=== PATIENT | male | born 1935 | race Caucasian/White ===

== ENCOUNTER 2018-03-18 21:44 | Inpatient (IN) | payer MEDICARE, BC ==
[2018-03-18] MEDS ORDERED: ALBUTEROL/IPRATROPIUM 1 VIAL SOL INH ONE ×2 (21:53→22:14)
[2018-03-18] MEDS ORDERED: PREDNISONE 20 MG TAB PO ONE (21:53)
[2018-03-18] MEDS ORDERED: PREDNISONE 20 MG TAB ONE (21:55)
[2018-03-18] MEDS ORDERED: ALBUTEROL/IPRATROPIUM 1 VIAL SOL ONE ×2 (21:55→22:23)
[2018-03-18] MEDS ORDERED: MORPHINE SULFATE 10 MG/ML SOL IM ONE (22:14)
[2018-03-18] MEDS ORDERED: MORPHINE SULFATE 10 MG/ML SOL ONE (22:23)
[2018-03-19] MEDS ORDERED: LORAZEPAM 0.5 MG TAB PO ONE (00:09)
[2018-03-19] MEDS ORDERED: LORAZEPAM 0.5 MG TAB ONE (00:16)
[2018-03-19] MEDS ORDERED: DILTIAZEM 5 MG/ML SOL IV ONE ×5 (00:23→12:44)
[2018-03-19 00:31] LABS: BASOPHILS % (AUTO) 1 % (0-3); EOSINOPHILS % (AUTO) 7 % (0-9); HEMATOCRIT 44 % (39-53); HEMOGLOBIN 14.2 gm/dl (13.5-17.7); LYMPHOCYTES % (AUTO) 9.1 % (10-50); MEAN CORPUSCULAR HEMOGLOBIN 31.8 pg (27.0-32.0); MEAN CORPUSCULAR HGB CONC 32.5 gm/dl (32.0-36.0); MEAN CORPUSCULAR VOLUME 98 fL (80-100); MONOCYTES % (AUTO) 2.6 % (0-12); NEUTROPHILS % (AUTO) 80.4 % (37-80)
[2018-03-19 00:39] LABS: ABG PH 7.4 (7.35-7.45)
[2018-03-19 00:47] LABS: BLOOD UREA NITROGEN 18 mg/dl (7-18); CALCIUM 8.9 mg/dl (8.5-10.1); CARBON DIOXIDE 25.9 mEq/L (21-32); CHLORIDE 103 mMol/L (98-107); GLUCOSE 164 mg/dl (74-106); POTASSIUM 4.3 mMol/L (3.5-5.1); SODIUM 140 mMol/L (136-145); TROP I < 0.017 ng/ml (0.000-0.056)
[2018-03-19] MEDS ORDERED: AZITHROMYCIN 250 MG TAB PO ONE (03:02)
[2018-03-19] MEDS ORDERED: SODIUM CHLORIDE 0.9% 100 ML 100 ML IV ONE (03:09)
[2018-03-19] MEDS: DILTIAZEM 5 MG/ML 125 MG in SODIUM CHLORIDE 0.9% 100 ML 100 ML IV SCH ×3 (03:18→12:54)
[2018-03-19] MEDS: ALBUTEROL/IPRATROPIUM 1 VIAL SOL INH SCH ×4 (03:23→20:34)
[2018-03-19] MEDS: SODIUM CHLORIDE 0.9% FLUSH 10 ML SOL IV SCH ×3 (03:31→20:39)
[2018-03-19] MEDS: ALBUTEROL NEB SOL 2.5MG/3ML 1 VIAL SOL NEB PRN ×3 (07:08→19:24)
[2018-03-19] MEDS: SOLUMEDROL 125 MG/2 ML 125 MG/2 ML PDS IV SCH ×2 (09:27→16:30)
[2018-03-19] MEDS ORDERED: DONEPEZIL 5 MG 5 MG TAB ONE (09:31)
[2018-03-19] MEDS: ENOXAPARIN 40 MG SOL SC SCH (09:34)
[2018-03-19] MEDS: DONEPEZIL 10 MG TAB PO SCH (09:37)
[2018-03-19] MEDS ORDERED: MORPHINE SULFATE 10 MG/ML SOL IV PRN (13:25)
[2018-03-19] MEDS ORDERED: SODIUM CHLORIDE 0.9% 500 ML 500 ML IV ONE (13:30)
[2018-03-19] MEDS ORDERED: LORAZEPAM 0.5 MG TAB PO PRN (14:04)
[2018-03-19] MEDS: QUETIAPINE FUMARATE 25 MG TAB PO SCH (20:38)
[2018-03-20] MEDS: SOLUMEDROL 125 MG/2 ML 125 MG/2 ML PDS IV SCH ×4 (00:24→23:35)
[2018-03-20] MEDS: DILTIAZEM ER 120 MG C24 PO SCH (00:31)
[2018-03-20] MEDS: ALBUTEROL/IPRATROPIUM 1 VIAL SOL INH SCH ×4 (02:27→20:06)
[2018-03-20] MEDS: SODIUM CHLORIDE 0.9% FLUSH 10 ML SOL IV SCH ×4 (02:42→23:35)
[2018-03-20 07:35] LABS: CALCIUM 8.9 mg/dl (8.5-10.1); CARBON DIOXIDE 25.5 mEq/L (21-32); CREATININE 1.13 mg/dl (0.80-1.30); POTASSIUM 4.6 mMol/L (3.5-5.1)
[2018-03-20 07:39] LABS: BASOPHILS % (AUTO) 0 % (0-3); EOSINOPHILS % (AUTO) 0 % (0-9); HEMATOCRIT 40 % (39-53); HEMOGLOBIN 12.8 gm/dl (13.5-17.7); LYMPHOCYTES % (AUTO) 9.4 % (10-50); MEAN CORPUSCULAR HEMOGLOBIN 31.5 pg (27.0-32.0); MEAN CORPUSCULAR VOLUME 98 fL (80-100); MONOCYTES % (AUTO) 1.5 % (0-12); NEUTROPHILS % (AUTO) 88.9 % (37-80)
[2018-03-20] MEDS ORDERED: LORAZEPAM 0.5 MG TAB PO PRN (08:14)
[2018-03-20] MEDS ORDERED: DONEPEZIL 5 MG 5 MG TAB ONE (08:33)
[2018-03-20] MEDS: AZITHROMYCIN 250 MG TAB PO SCH (08:50)
[2018-03-20] MEDS: DONEPEZIL 10 MG TAB PO SCH (08:51)
[2018-03-20] MEDS: ENOXAPARIN 40 MG SOL SC SCH (08:52)
[2018-03-20] MEDS: QUETIAPINE FUMARATE 25 MG TAB PO SCH (20:05)
[2018-03-21] MEDS: ALBUTEROL/IPRATROPIUM 1 VIAL SOL INH SCH ×4 (02:18→20:38)
[2018-03-21 07:18] LABS: BASOPHILS % (AUTO) 0 % (0-3); EOSINOPHILS % (AUTO) 0 % (0-9); HEMATOCRIT 40 % (39-53); HEMOGLOBIN 13.1 gm/dl (13.5-17.7); LYMPHOCYTES % (AUTO) 4.5 % (10-50); MEAN CORPUSCULAR HEMOGLOBIN 32.2 pg (27.0-32.0); MEAN CORPUSCULAR VOLUME 97 fL (80-100); MONOCYTES % (AUTO) 2.5 % (0-12); NEUTROPHILS % (AUTO) 92.9 % (37-80)
[2018-03-21 07:19] LABS: CALCIUM 8.7 mg/dl (8.5-10.1); CARBON DIOXIDE 25.3 mEq/L (21-32); CREATININE 1.24 mg/dl (0.80-1.30); POTASSIUM 4.1 mMol/L (3.5-5.1)
[2018-03-21] MEDS: SODIUM CHLORIDE 0.9% FLUSH 10 ML SOL IV SCH ×2 (09:24→20:42)
[2018-03-21] MEDS: DONEPEZIL 5 MG 5 MG TAB PO SCH (09:30)
[2018-03-21] MEDS: AZITHROMYCIN 250 MG TAB PO SCH (09:30)
[2018-03-21] MEDS: DILTIAZEM ER 120 MG C24 PO SCH (09:31)
[2018-03-21] MEDS: SOLUMEDROL 125 MG/2 ML 125 MG/2 ML PDS IV SCH ×3 (10:22→21:51)
[2018-03-21] MEDS: QUETIAPINE FUMARATE 25 MG TAB PO SCH (20:43)
[2018-03-22] MEDS: SODIUM CHLORIDE 0.9% FLUSH 10 ML SOL IV SCH ×3 (01:15→17:51)
[2018-03-22] MEDS: ALBUTEROL/IPRATROPIUM 1 VIAL SOL INH SCH ×4 (01:55→20:53)
[2018-03-22 07:24] LABS: CALCIUM 8.4 mg/dl (8.5-10.1); CARBON DIOXIDE 27.7 mEq/L (21-32); CREATININE 1.18 mg/dl (0.80-1.30); POTASSIUM 3.9 mMol/L (3.5-5.1)
[2018-03-22] MEDS: AZITHROMYCIN 250 MG TAB PO SCH (08:34)
[2018-03-22] MEDS: DILTIAZEM ER 120 MG C24 PO SCH (08:35)
[2018-03-22] MEDS: DONEPEZIL 5 MG 5 MG TAB PO SCH (08:36)
[2018-03-22] MEDS: PREDNISONE 20 MG TAB PO SCH (09:29)
[2018-03-22] MEDS: QUETIAPINE FUMARATE 25 MG TAB PO SCH (20:55)
[2018-03-23] MEDS: ALBUTEROL/IPRATROPIUM 1 VIAL SOL INH SCH ×2 (04:09→09:29)
[2018-03-23] MEDS: SODIUM CHLORIDE 0.9% FLUSH 10 ML SOL IV SCH ×2 (04:15→08:36)
[2018-03-23 07:52] VITALS: BP 134/81; TEMP 97.7
[2018-03-23] MEDS: AZITHROMYCIN 250 MG TAB PO SCH (08:38)
[2018-03-23] MEDS: DILTIAZEM ER 120 MG C24 PO SCH (08:38)
[2018-03-23] MEDS: PREDNISONE 20 MG TAB PO SCH (08:38)
[2018-03-23] MEDS ORDERED: DONEPEZIL 5 MG 5 MG TAB PO SCH (09:00)
[2018-03-23] MEDS ORDERED: INFLUENZA HIGH DOSE VACCINE 0.5 ML SUS IM ONE (09:29)
[2018-03-23 09:35] VITALS: RESP 20
[2018-03-23 09:37] VITALS: PULSE 98; O2SAT 96
== END 2018-03-23 09:50 | disposition home or self-care (01) | DRG 192 ==
LOC: ED 21:44 → ACUTE CARE 03-19 01:30
PROVIDERS: ADMIT Emergency Medicine; ATTEND Emergency Medicine
PROC: F01M5ZZ Range of Motion and Joint Integrity Assessment of Musculoskeletal System - Whole Body (ICD-10-PCS; principal; 2018-03-20)
PROC: [UNRECOGNIZED PROCEDURE] (2018-03-20)
PROC: F02Z0ZZ Bathing/Showering Assessment (ICD-10-PCS; 2018-03-20)
DX: J44.1 Chronic obstructive pulmonary disease with (acute) exacerbation (principal); I48.91 Unspecified atrial fibrillation; R06.02 Shortness of breath; E11.9 Type 2 diabetes mellitus without complications; F03.90 Unspecified dementia, unspecified severity, without behavioral disturbance, psychotic disturbance, mood disturbance, and anxiety
CPT/HCPCS: 36415; 36600; 51798; 71045; 80048; 82803; 82962; 83880; 84484; 85025; 90662; 93005; 93012; 93306; 94150; 94640; 94664; 96372; 96374; 99222; 99291; J1650; J2270; J2930; J7613; A9270-GY; G0008; J3490

== ENCOUNTER 2018-07-04 22:36 | Inpatient (IN) | payer MEDICARE, BC ==
[2018-07-04] MEDS ORDERED: ALBUTEROL NEB SOL 2.5MG/3ML 1 VIAL SOL NEB ONE ×2 (22:39→23:15)
[2018-07-04] MEDS ORDERED: SOLUMEDROL 125 MG/2 ML 125 MG/2 ML PDS IV ONE (22:39)
[2018-07-04] MEDS: SODIUM CHLORIDE 0.9% FLUSH 10 ML SOL IV PRN (22:40)
[2018-07-04] MEDS ORDERED: SOLUMEDROL 125 MG/2 ML 125 MG/2 ML PDS ONE (22:45)
[2018-07-04 23:14] LABS: BASOPHILS % (AUTO) 2 % (0-3); EOSINOPHILS % (AUTO) 11 % (0-9); HEMATOCRIT 43 % (39-53); HEMOGLOBIN 13.8 gm/dl (13.5-17.7); MEAN CORPUSCULAR HEMOGLOBIN 31.5 pg (27.0-32.0); MEAN CORPUSCULAR HGB CONC 32.4 gm/dl (32.0-36.0); MEAN CORPUSCULAR VOLUME 97 fL (80-100); MONOCYTES % (AUTO) 8.9 % (0-12); NEUTROPHILS % (AUTO) 63.3 % (37-80)
[2018-07-04 23:15] LABS: ABG PH 7.4 (7.35-7.45)
[2018-07-04] MEDS ORDERED: ALBUTEROL NEB SOL 2.5MG/3ML 1 VIAL SOL ONE (23:16)
[2018-07-04 23:29] LABS: ALBUMIN 3.7 gm/dl (3.4-5.0); ALKALINE PHOSPHATASE 70 IU/L (46-116); ALT 19 IU/L (14-63); AST 20 IU/L (15-37); BILIRUBIN,TOTAL 0.5 mg/dl (0.2-1.0); BLOOD UREA NITROGEN 21 mg/dl (7-18); CALCIUM 8.8 mg/dl (8.5-10.1); CARBON DIOXIDE 29.3 mEq/L (21-32); CHLORIDE 105 mMol/L (98-107); CREATININE 1.11 mg/dl (0.80-1.30); GLUCOSE 142 mg/dl (74-106); POTASSIUM 4.1 mMol/L (3.5-5.1); SODIUM 142 mMol/L (136-145); TOTAL PROTEIN 7.6 gm/dl (6.4-8.2); TROP I < 0.017 ng/ml (0.000-0.056)
[2018-07-04] MEDS ORDERED: ALBUTEROL/IPRATROPIUM 1 VIAL SOL INH ONE (23:47)
[2018-07-04] MEDS ORDERED: MAGNESIUM SULFATE 1 GM/2 ML SOL IV ONE (23:47)
[2018-07-04] MEDS ORDERED: ALBUTEROL/IPRATROPIUM 1 VIAL SOL ONE (23:54)
[2018-07-05] MEDS ORDERED: MAGNESIUM SULFATE 5 GM/10 ML SOL ONE (00:02)
[2018-07-05] MEDS ORDERED: ALBUTEROL NEB SOL 2.5MG/3ML 1 VIAL SOL NEB PRN ×2 (02:33→10:10)
[2018-07-05] MEDS ORDERED: AZITHROMYCIN 500 MG PDS IV SCH (02:45)
[2018-07-05] MEDS: SOLUMEDROL 125 MG/2 ML 125 MG/2 ML PDS IV SCH ×4 (03:28→20:49)
[2018-07-05] MEDS: SODIUM CHLORIDE 0.9% FLUSH 10 ML SOL IV PRN ×2 (03:30→20:50)
[2018-07-05] MEDS ORDERED: ALBUTEROL NEB SOL 2.5MG/3ML 1 VIAL SOL ONE (03:56)
[2018-07-05] MEDS ORDERED: FUROSEMIDE 20mg SOL IV ONE (04:15)
[2018-07-05] MEDS ORDERED: BISACODYL 5 MG TAB ECT PO PRN (08:21)
[2018-07-05] MEDS: DOXYCYCLINE 100 MG TAB PO SCH ×2 (08:46→20:52)
[2018-07-05] MEDS: DONEPEZIL 5 MG 5 MG TAB PO SCH (08:47)
[2018-07-05] MEDS: DILTIAZEM ER 120 MG C24 PO SCH (08:48)
[2018-07-05] MEDS: NOVOLOG FLEXPEN SC SCH ×4 (08:51→20:55)
[2018-07-05] MEDS: ALBUTEROL/IPRATROPIUM 1 VIAL SOL INH SCH ×3 (08:56→20:46)
[2018-07-05] MEDS: QUETIAPINE FUMARATE 25 MG TAB PO SCH (20:52)
[2018-07-06] MEDS: ALBUTEROL/IPRATROPIUM 1 VIAL SOL INH SCH ×4 (02:42→21:12)
[2018-07-06] MEDS: SODIUM CHLORIDE 0.9% FLUSH 10 ML SOL IV PRN ×3 (02:45→21:13)
[2018-07-06] MEDS: SOLUMEDROL 125 MG/2 ML 125 MG/2 ML PDS IV SCH ×4 (02:45→21:14)
[2018-07-06] MEDS: NOVOLOG FLEXPEN SC SCH ×4 (08:51→21:19)
[2018-07-06] MEDS: DILTIAZEM ER 120 MG C24 PO SCH (08:55)
[2018-07-06] MEDS: DOXYCYCLINE 100 MG TAB PO SCH ×2 (08:56→21:23)
[2018-07-06] MEDS: DONEPEZIL 5 MG 5 MG TAB PO SCH (09:01)
[2018-07-06] MEDS: QUETIAPINE FUMARATE 25 MG TAB PO SCH (21:23)
[2018-07-07] MEDS: ALBUTEROL/IPRATROPIUM 1 VIAL SOL INH SCH ×4 (02:58→19:34)
[2018-07-07] MEDS: SODIUM CHLORIDE 0.9% FLUSH 10 ML SOL IV PRN (02:58)
[2018-07-07] MEDS: SOLUMEDROL 125 MG/2 ML 125 MG/2 ML PDS IV SCH ×2 (02:58→08:53)
[2018-07-07] MEDS: DONEPEZIL 5 MG 5 MG TAB PO SCH (08:55)
[2018-07-07] MEDS: DOXYCYCLINE 100 MG TAB PO SCH ×2 (08:56→20:04)
[2018-07-07] MEDS: NOVOLOG FLEXPEN SC SCH ×4 (08:57→20:08)
[2018-07-07] MEDS: DILTIAZEM ER 120 MG C24 PO SCH (08:59)
[2018-07-07] MEDS: QUETIAPINE FUMARATE 25 MG TAB PO SCH (20:04)
[2018-07-08] MEDS: ALBUTEROL/IPRATROPIUM 1 VIAL SOL INH SCH ×4 (03:30→20:01)
[2018-07-08] MEDS: NOVOLOG FLEXPEN SC SCH ×4 (08:30→20:04)
[2018-07-08] MEDS: DOXYCYCLINE 100 MG TAB PO SCH ×2 (08:39→20:02)
[2018-07-08] MEDS: DONEPEZIL 5 MG 5 MG TAB PO SCH (08:39)
[2018-07-08] MEDS: PREDNISONE 20 MG TAB PO SCH (08:40)
[2018-07-08] MEDS: DILTIAZEM ER 120 MG C24 PO SCH (08:41)
[2018-07-08] MEDS: QUETIAPINE FUMARATE 25 MG TAB PO SCH (20:02)
[2018-07-09] MEDS: ALBUTEROL/IPRATROPIUM 1 VIAL SOL INH SCH ×4 (03:34→19:49)
[2018-07-09] MEDS: NOVOLOG FLEXPEN SC SCH ×2 (08:06→19:34)
[2018-07-09] MEDS: DONEPEZIL 5 MG 5 MG TAB PO SCH (09:11)
[2018-07-09] MEDS: DILTIAZEM ER 120 MG C24 PO SCH (09:15)
[2018-07-09] MEDS: PREDNISONE 20 MG TAB PO SCH (09:16)
[2018-07-09] MEDS: DOXYCYCLINE 100 MG TAB PO SCH ×2 (09:16→20:25)
[2018-07-09] MEDS: QUETIAPINE FUMARATE 25 MG TAB PO SCH (20:25)
[2018-07-10] MEDS: ALBUTEROL/IPRATROPIUM 1 VIAL SOL INH SCH ×4 (01:36→19:57)
[2018-07-10] MEDS: DOXYCYCLINE 100 MG TAB PO SCH ×2 (08:10→20:01)
[2018-07-10] MEDS: PREDNISONE 20 MG TAB PO SCH (08:11)
[2018-07-10] MEDS: DONEPEZIL 5 MG 5 MG TAB PO SCH (08:12)
[2018-07-10] MEDS: DILTIAZEM ER 120 MG C24 PO SCH (08:12)
[2018-07-10] MEDS: QUETIAPINE FUMARATE 25 MG TAB PO SCH (20:01)
[2018-07-11] MEDS: ALBUTEROL/IPRATROPIUM 1 VIAL SOL INH SCH ×2 (01:43→09:02)
[2018-07-11 01:49] VITALS: RESP 18
[2018-07-11 08:17] VITALS: BP 129/87; TEMP 97.7
[2018-07-11] MEDS: DILTIAZEM ER 120 MG C24 PO SCH (09:01)
[2018-07-11] MEDS: DONEPEZIL 5 MG 5 MG TAB PO SCH (09:02)
[2018-07-11] MEDS: PREDNISONE 20 MG TAB PO SCH (09:02)
[2018-07-11] MEDS: DOXYCYCLINE 100 MG TAB PO SCH (09:05)
[2018-07-11 09:15] VITALS: PULSE 78; O2SAT 95
== END 2018-07-11 10:15 | DRG 192 ==
LOC: ED 22:36 → ACUTE CARE 07-05 01:05
PROVIDERS: ADMIT Family Medicine; ATTEND Family Medicine
PROC: F01ZBZZ Bed Mobility Assessment (ICD-10-PCS; principal; 2018-07-05)
PROC: F01ZCZZ Transfer Assessment (ICD-10-PCS; 2018-07-05)
PROC: F02Z0ZZ Bathing/Showering Assessment (ICD-10-PCS; 2018-07-06)
PROC: F02Z3ZZ Grooming/Personal Hygiene Assessment (ICD-10-PCS; 2018-07-06)
DX: J44.1 Chronic obstructive pulmonary disease with (acute) exacerbation (principal); R06.02 Shortness of breath; G30.1 Alzheimer's disease with late onset; F02.80 Dementia in other diseases classified elsewhere, unspecified severity, without behavioral disturbance, psychotic disturbance, mood disturbance, and anxiety; E11.9 Type 2 diabetes mellitus without complications; R19.7 Diarrhea, unspecified
CPT/HCPCS: 36415; 36600; 71045; 80053; 82803; 82962; 83880; 84484; 85025; 93005; 93012; 94150; 94664; 96365; 96374; 99222; 99231; 99285; J0456; J1940; J2930; J3475; J7613; A9270-GY; J1815